=== PATIENT | male | born 1935 | race Caucasian/White ===

== ENCOUNTER 2023-04-29 08:02 | Outpatient (CLI) | payer MEDICARE, SELFPAY ==
--- OUTSIDE RECORDS SUMMARY | 2023-04-29 08:06 | XMS_ITS | Continuity of Care Document ---
Author Name Unknown Organization Z [facility] Address [address] [place] [address] [address] [place] [address] Phone Care Team Providers Care Welfare Centre Manager Name Role Phone Unavailable Unavailable Unavailable Procedures Procedure Date Office/Outpatient Visit,[facility] 2011 Advance Directives Directive Yes / No Effective Date File Name No Information Encounters Encounter Description Practice Location Reason(s) For Visit Diagnoses Date Provider Providers Copied on Encounter [facility], [address] [place] [address], [address], [place] tel:[phone] [facility] - [facility] No Information 3 No Information Office/Outpat ient Visit,[facility], [facility], [address] [place] [address] [address], [place], [address], [place] tel:[phone] [facility] [place] No Information 2 Kalen Reynolds. [facility], [address] [place] [address] [address], [place], [id number], [place]. tel:[phone] Referring Provider: Hansel Skinner, [facility] [address], [place], [address]. tel:[phone] Family History Family Member Type Diagnosis Age At Onset No Information Payers Payer name Insurance type Covered republican ID Authoriza tion(s) [employer] Medicare CI [id number] Social History Type Description Quantity Date Captured Comments Sex Male Smoking Status No Information Chief Complaint And Reason For Visit No Information Reason For Referral Reason For Referral No Information Plan Of Treatment Date Type Action Status No Information History Of Present Illness Encounter Date Complaint History Of Prese nt Illness No Information Functional Status Date Functional Assessmen t No Information Instructions Date Instruction Additional Infor mation No Information Assessments Type Assessment Date No Information Patient Care Teams Name Effective Dates (start - stop) Status Members No Information
== END 2023-04-29 08:03 | disposition home or self-care (01) ==
PROVIDERS: PCP Family Medicine; Visit Provider Family Medicine
DX: I10 Essential (primary) hypertension (principal); E78.5 Hyperlipidemia, unspecified; N18.4 Chronic kidney disease, stage 4 (severe); D63.8 Anemia in other chronic diseases classified elsewhere; M10.9 Gout, unspecified
CPT/HCPCS: 80048; 80061

== ENCOUNTER 2024-05-17 09:44 | Outpatient (CLI) | payer MEDICARE, SELFPAY ==
--- OUTSIDE RECORDS SUMMARY | 2024-05-17 09:47 | XMS_ITS | Continuity of Care Document ---
Author Organization Z [facility] Address [address] [place] [address] [address] [place] [address] Phone Care Team Providers Care Urology Physician Name Role Phone Unavailable Unavailable Unavailable Procedures Procedure Date Office/Outpatient Visit,[facility] 2011 Advance Directives Directive Yes / No Effective Date File Name No Information Encounters Encounter Description Practice Location Reason(s) For Visit Diagnoses Date Provider Providers Copied on Encounter [facility], [address] [place], [place] [address] [place] [address], [address], [place] tel:[phone] [facility] [place] No Information 3 No Information Office/Outpat ient Visit,[facility], [address], [place], [address], [place] tel:[phone] [facility] [place] No Information 2 Kalen Rodolfo. [facility], [address] [place] [address] [address], [place], [id number], [place]. tel:[phone] Referring Provider: Hansel Skinner, [facility] [address] [place], [address]. tel:[phone] Family History Family Member Type Diagnosis Age At Onset No Information Payers Payer name Insurance type Covered constitution party ID Authoriza tion(s) [employer] Medicare CI [id number] Social History Type Description Quantity Date Captured Comments Sex Male Smoking Status No Information Chief Complaint And Reason For Visit No Information Reason For Referral Reason For Referral No Information History Of Present Illness Encounter Date Complaint History Of Prese nt Illness No Information Functional Status Date Functional Assessmen t No Information Instructions Date Instruction Additional Infor mation No Information Assessments Type Assessment Date No Information Patient Care Teams Name Effective Dates (start - stop) Status Members No Information
--- OUTSIDE RECORDS SUMMARY | 2024-05-17 09:47 | XMS_ITS | Continuity of Care Document ---
Author Organization [facility] Address [address] [facility] [address] [place] [address] Phone Care Team Providers Care Door Core Assembler Name Role Phone Kristel SALEH MD, Julián Unavailable Unavailable Advance Directives Directive Yes / No Effective Date File Name No Information Encounters Encounter Description Practice Location Reason(s) For Visit Diagnoses Date Provider Providers Copied on Encounter [facility], [address] [place], [place], [id number], [place] tel:[phone] No Information Apr-0 6200 4 Kristel Gallego. [address], [place], [address], [place]. tel:[phone] Referring Provider: Julián Dodd, [address] [place], [place], [facility]. tel:[phone] Family History Family Member Type Diagnosis Age At Onset No Information Payers Payer name Insurance type Covered alliance party ID Authoriza tiangela(s) Blue Plus BL [id number] Social History Type Description Quantity Date Captured [...]
--- OUTSIDE RECORDS SUMMARY | 2024-05-17 09:47 | XMS_ITS | Clinical Summary ---
Author Organization [facility] Address [address] [place] [address] Phone Care Team Providers Care Cashier Courtesy Booth Name Role Phone Hansel Macdonald MD Primary Care Provider [phone] Medications Medication Sig Dispensed Refills Start Date End Date Status allopurinol (ZYLOPRIM) 100 MG tablet 2 tablets by mouth daily 3 05/17/2019 Active simvastatin (ZOCOR) 80 MG tablet 1/2 tablet (40 mg) by mouth daily 0 05/02/2019 Active lisinopril (PRINIVIL,ZESTRIL) 10 MG tablet 1 tablet by mouth daily 0 05/02/2019 Active amLODIPine (NORVASC) 5 MG tablet 1 tablet by mouth daily 0 05/02/2019 Active aspirin (ASPIR) 81 MG EC tablet 1 tablet by mouth 2 times per week 0 05/02/2019 Active indomethacin (INDOCIN) 50 MG capsule 1 tablet by mouth 3-5 times a year 0 05/02/2019 Active Active Problems Problem Noted Date Diagnosed Date Chronic kidney disease, stage 4 (severe) 019 Essential (primary) hypertension 05/03/2019 Gout 05/03/2019 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 Hyperlipidemia 05/03/2019 Family History Medical History Relation Comments Kidney disease Neg Hx Social History Tobacco Use Types Packs/Day Years Used Date Smoking Tobacco: Never Alcohol Use Standard Drinks/Week Comments Yes 0 (1 standard drink = 0.6 oz pure alcohol) Alcoholic Drinks/day: 4 beers per week Sex and Gender Information Value Date Recorded Sex Assigned at Not on file Gender Identity Not on file Sexual Orientation Not on file Last Filed Vital Signs Vital Sign Reading Time Taken Comments Blood Pressure 142/53 08/10/2019 12:01 AM CDT Sitting, Left Pulse 85 08/10/2019 12:01 AM CDT Brachial Temperature 36.4 ??C (97.5 ??F) 08/10/2019 1 2:01 AM CDT Respiratory Rate 20 05/03/2019 12:0 1 AM CDT Oxygen Saturation 98% 05/03/2019 12: 01 AM CDT Inhaled Oxygen Concentration - - Weight 85.1 kg (187 lb 9.6 oz) 08/10/2019 12:01 AM CDT Height 177.8 cm (5' 10) 08/10/2019 12: 01 AM CDT Body Mass Index 26.92 08/10/2019 12:01 AM CDT Plan of Treatment Health Maintenance Due Date Last Done Comments Pneumococcal PPSV23/PCV13 65 + Years / Low and Medium Risk (1 of 4 - PCV) 12/31/2000 Influenza Vaccine (#1) 2024 Care Teams Cashier Courtesy Booth Relationship Specialty Start Date End Date Hansel Macdonald MD [address] [place] [address] PCP - General 06/26/21
== END 2024-05-17 09:45 | disposition home or self-care (01) ==
PROVIDERS: PCP Family Medicine; Visit Provider Family Medicine
DX: E78.5 Hyperlipidemia, unspecified (principal); I10 Essential (primary) hypertension; R53.83 Other fatigue; D63.8 Anemia in other chronic diseases classified elsewhere
CPT/HCPCS: 80048; 80061; 84439; 84443

== ENCOUNTER 2025-05-17 09:48 | Outpatient (CLI) | payer MEDICARE, SELFPAY | END 2025-05-17 09:49 | disposition home or self-care (01) | PROVIDERS: PCP Family Medicine; Visit Provider Family Medicine | DX: E78.2 Mixed hyperlipidemia (principal); I10 Essential (primary) hypertension | CPT/HCPCS: 80048; 80061 ==

== ENCOUNTER 2025-05-23 08:55 | Day surgery (SDC) | payer MEDICARE, SELFPAY ==
[2025-05-23 09:35] VITALS: BMI 25.8
[2025-05-23 10:00] VITALS: BP 112/71; PULSE 77; RESP 16; TEMP 36.6; O2SAT 99
[2025-05-23] MEDS: LACTATED RINGERS 1000 ML 1,000 ML 100 ML IV (10:20)
[2025-05-23] MEDS: SODIUM CHLORIDE 0.9 % (FLUSH) 10 ML SYRINGE IVF (10:23)
--- NOTE | 2025-05-23 10:30 | W.PM.H&PU ---
History & Physical Update History & Physical Update H&P Reviewed and patient assessed: No changes noted
[2025-05-23] MEDS: BUPIVACAINE 0.25% 30 ML INJECTION (10:54)
[2025-05-23] MEDS: LIDOCAINE 1%-EPI 1:100,000 20 ML INFILTRATI (10:54)
--- NOTE | 2025-05-23 11:10 | P.ANES_ITS ---
Anesthesia Charges Start Date/Time Anesthesia Start Date: 05/23/25 Anesthesia Start Time: 10:27 Stop Date/Time Anesthesia Stop Date: 05/23/25 Anesthesia Stop Time: 12:21 Summary Extremes of Age - Over 70 or under 1: MDA Coding CPT Codes CPT Codes: ANESTH HEAD/NECK/PTRUNK - 70262 ([id number]) P3 - PATIENT W/SEVERE SYS DISEASE, QK - VRT MECHANIC 2-4 CNCRNT ANES PROC, QX - RN MATERNITY SVC W/ MD MED DIRECTION Additional Codes: Summary - Extremes of Age - Over 70 or under 1: MDA ([id number])
--- NOTE | 2025-05-23 11:10 | W.ANESCHARGE ---
Anesthesia Charges Start Date/Time Anesthesia Start Date: 05/23/25 Anesthesia Start Time: 10:27 Stop Date/Time Anesthesia Stop Date: 05/23/25 Anesthesia Stop Time: 12:21 Summary Extremes of Age - Over 70 or under 1: MDA Coding CPT Codes CPT Codes: ANESTH HEAD/NECK/PTRUNK - 22398 ([id number]) P3 - PATIENT W/SEVERE SYS DISEASE, QK - WATERPROOFING SUPERVISOR 2-4 CNCRNT ANES PROC, QX - GEOGRAPHICAL HISTORIAN SVC W/ MD MED DIRECTION Additional Codes: Summary - Extremes of Age - Over 70 or under 1: MDA ([id number])
[2025-05-23 12:20] VITALS: BP 124/71; PULSE 70; RESP 16; TEMP 35.6; O2SAT 98
--- NOTE | 2025-05-23 12:20 | SUR.OPER ---
Skin tear discoverd on right forearm after moving patient from OR table to cart. 4x4 and coban applied to area
--- NOTE | 2025-05-23 12:22 | PM.GSPRC ---
Operative Note Date of procedure: 05/23/25 Pre-op diagnosis: 1. Enlarging left mandaen skin lesion, left forearm skin lesion, and left posterior shoulder mass. Post-op diagnosis: Same Type of Procedure: 1. Excision of left temporal skin lesion. 2. Excision of left dorsal forearm skin lesion. 3. Excision of left posterior shoulder/base of the neck subdermal mass. Indications: 89-year-old male was seen in clinic for evaluation of left temporal skin lesion, left forearm skin lesion, and left posterior shoulder mass. He noticed these lesions 6-12 months ago. The skin lesions have been increasing in size and peeling. He denied bleeding at the lesions. 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 Patient's base of the neck mass has been present for 3-5 years. He complained of this mass being pruritic and it has been increasing in size. He tried applying vinegar and joseluis over the skin lesions but those did not help. On clinical exam in the left temporal skin there was irregular slightly raised scaly lesion measuring approximately 1.1 cm in diameter. There was central depression. There was no surrounding erythema. In the left dorsal forearm there was a dermal lesion that was measuring approximately 1.3 cm in diameter and was from to palpation. There was good skin laxity surrounding lesion. In the left posterior shoulder/base of the neck there was a golf ball-sized subdermal mass with a central skin opening. This was suspicious for a benign cyst. Given patient's clinical history and enlarging nature of the lesions, excision of left temporal skin lesion, left dorsal forearm skin lesion, and left posterior shoulder/base of neck mass were recommended. The procedure was discussed in detail. The risks associated procedure including infection, bleeding, and the need for additional procedures were all discussed with the patient, and he agreed to proceed. Procedure Description: After discussing the risks and benefits of the procedure, the patient signed informed consent.? The operative site was marked and the patient was brought to the operating room and placed on the operating table in the right lateral decubitus position.? Care was taken to pad the patient's pressure points.?? The patient was then sedated by anesthesia.?? The operative site was then prepped and draped in the usual sterile fashion.? A time-out was then performed. Local anesthetic was injected at the surgical site. I first started with the left temporal skin lesion. An elliptical slightly oblique skin incision was made with a scalpel. Dermis and subcutaneous fat were divided with cautery. The ellipse of skin containing 1.3 cm in diameter skin lesion was excised with cautery. It was marked with a single stitch superior and double posterior and sent to pathology for margin evaluation. The ellipse of skin was measured 4 x 1.5 cm and had 0.1 cm superior and inferior margins. Pathology evaluated the margins and the margins were negative. Subcutaneous tissue was then divided to develop skin flaps superiorly and inferiorly. The incision was then reapproximated with interrupted 3-0 Vicryl sutures. The skin was closed with a running 4-0 Monocryl stitch. The skin was closed with Dermabond. We then proceeded with excision of left dorsal forearm skin lesion. Local anesthetic was injected the surgical site. A vertical elliptical skin incision was made with a scalpel around a firm to palpation raised 1.3 cm in diameter skin lesion. 0.3 cm lateral and medial margins were marked. The ellipse of skin containing the suspicious lesion was excised with cautery. The ellipse of skin was measured 4.5 x 2 cm. It was marked with a single stitch superior, double lateral and sent to pathology for margins. Pathology evaluated the margins and those were negative. The skin of forearm was extremely thin the epidermis from the dermis. The skin flaps were developed medially and laterally with cautery. The dermis was reapproximated with interrupted 3-0 Vicryl sutures. The closure of this incision was very difficult due to the thinness of the skin. Grasping the skin with Adson pickups was tearing the epidermis. We elected to place several interrupted 4-0 Monocryl stitches to reapproximate the skin. The incision was then closed with surgical glue. 4 x 4 was placed over the incision when the glue was dry, and the forearm was wrapped in an Chapito wrap. I then proceeded with excision of the left posterior shoulder/base of the neck mass. Local anesthetic was injected the surgical site. An elliptical vertical skin incision was made with a scalpel. Dermis and subcutaneous fat were divided with a scalpel and cautery. The ellipse of skin containing the cyst opening and the skin attachment to the cyst were excised with the mass. The ellipse of skin containing this mass was 7 x 3 cm. The mass was 3 cm in diameter. This mass was sent to pathology for permanent section. Hemostasis achieved with cautery. Superior and inferior skin flaps were developed with cautery. The incision was then reapproximated with interrupted 2-0 and 3-0 Vicryl sutures. The skin was closed with a running 4-0 Monocryl stitch. Steri-Strips and sterile pressure dressing were placed over the incision. All counts were correct at the end of the case. ? The patient was then woken and transported to the recovery area in stable condition. ? The patient tolerated the procedure well. Anesthesia: MAC and local Surgeon: Zuleyma Han MD Additional Specimen Information: 1. Left temporal skin lesion. 2. Left dorsal forearm skin lesion. 3. Left shoulder mass. Condition: stable Disposition: same day
--- NOTE | 2025-05-23 12:24 | P.ANES_ITS ---
Anesthesia Charges Start Date/Time Anesthesia Start Date: 05/23/25 Anesthesia Start Time: 10:27 Stop Date/Time Anesthesia Stop Date: 05/23/25 Anesthesia Stop Time: 12:21 Summary Extremes of Age - Over 70 or under 1: RADIAL DRILL PRESS SET UP OPERATOR Coding CPT Codes CPT Codes: ANESTH HEAD/NECK/PTRUNK - 79788 ([id number]) P3 - PATIENT W/SEVERE SYS DISEASE, QK - PRODUCT ASSURANCE ENGINEER 2-4 CNCRNT ANES PROC, QX - RADIAL DRILL PRESS SET UP OPERATOR SVC W/ MD MED DIRECTION Additional Codes: Summary - Extremes of Age - Over 70 or under 1: RADIAL DRILL PRESS SET UP OPERATOR ([id number])
--- NOTE | 2025-05-23 12:24 | W.ANESCHARGE ---
Anesthesia Charges Start Date/Time Anesthesia Start Date: 05/23/25 Anesthesia Start Time: 10:27 Stop Date/Time Anesthesia Stop Date: 05/23/25 Anesthesia Stop Time: 12:21 Summary Extremes of Age - Over 70 or under 1: TAR KETTLE RUNNER Coding CPT Codes CPT Codes: ANESTH HEAD/NECK/PTRUNK - 21044 ([id number]) P3 - PATIENT W/SEVERE SYS DISEASE, QK - PHOTOGRAPHIC ENLARGER OPERATOR 2-4 CNCRNT ANES PROC, QX - TAR KETTLE RUNNER SVC W/ MD MED DIRECTION Additional Codes: Summary - Extremes of Age - Over 70 or under 1: TAR KETTLE RUNNER ([id number])
[2025-05-23 12:30] VITALS: BP 115/61; PULSE 70; RESP 18; O2SAT 98
[2025-05-23 12:45] VITALS: BP 111/59; PULSE 82; RESP 18; O2SAT 96
[2025-05-23 13:00] VITALS: BP 117/58; PULSE 82; RESP 18; O2SAT 96
== END 2025-05-23 13:13 | disposition home or self-care (01) ==
PROVIDERS: PCP Family Medicine; Visit Provider Surgery
PROC: (CPT 11646; principal; 2025-05-23 11:00)
DX: C44.319 Basal cell carcinoma of skin of other parts of face (principal); C44.619 Basal cell carcinoma of skin of left upper limb, including shoulder; L72.8 Other follicular cysts of the skin and subcutaneous tissue
CPT/HCPCS: 11646; 11606; 17999; 11406; 00300; 99100; J0665; J0690; J1100; J2371; J2405; J2704; J3010; J7120